=== PATIENT | female | born 1990 | race Caucasian/White ===

== ENCOUNTER → 2016-10-20 | Day surgery (SDC) | payer OTHER ==
[~2016-10-20] MED LIST: ACET325T11 PO; ACETAMINOPHEN 1000 MG/100 ML VIAL IV ONE; BACITRACIN IM FOR SOLN 50,000 UNIT VIAL ONE; BUPIVACAINE/EPINEPHRINE 0.25% 50 ML VIAL ONE; GENTAMICIN SULFATE 80 MG/2 ML VIAL ONE; LACTATED RINGER'S 1000 ML INJ 1,000 ML ONE; LIDOCAINE 1%/EPINEPHrine 1:100,000 SOLN 20 ML VIAL ONE; MIDAZOLAM HCL 2 MG/2 ML VIAL ONE; ONDANSETRON HCL 4 MG/2 ML VIAL IV PUSH ONE; PREN0.01 PO; PROPOFOL 200 MG/20 ML AMP IV ONE; SODIUM CHLORIDE 0.9% 20 ML VIAL ONE; ceFAZolin INJ 1,000 MG VIAL ONE
--- NOTE | 2016-10-20 12:33 | TN ---
cc: JUDD VÁSQUEZ M.D. DATE OF SURGERY 10/20/2016 PREOPERATIVE DIAGNOSIS Wishes of breast enhancement. POSTOPERATIVE DIAGNOSIS Wishes of breast enhancement. PROCEDURE Bilateral breast augmentation. SURGEON Judd Vásquez MD ANESTHESIA LMA general ESTIMATED BLOOD LOSS Minimal COMPLICATIONS None DRAINS None TECHNIQUE, PLACEMENT AND IMPLANT An inframammary, retroperitoneal cohesive texture gel DAPHNE Link, volume 450 cc, serial number of the right breast implant device [id number], implant data on the left breast implant [id number]. COMPLICATIONS None DRAINS None PROCEDURE She was properly consented, marked, properly anesthetized, skin was sterilized with Betadine solution and sterile draping applied. I proceeded to performed a breast block of a total of 60 cc of 1% lidocaine with epinephrine mixed with 0.25% Marcaine in a 2:1 ration. Through a 5-1/2 - 6 cm inframammary incision, Monisha's fascia was appropriately identified and spared creating a proper hammock sling for the lower pole. This was properly brought into the dissection and was carried on down into the muscle fibers of the pectoris major muscle. The fascia was properly dissected with a retroglandular plane exposing the pectoris major muscle fibers. The pocket was properly created utilizing electrocautery. Meticulous hemostasis was reassured and irrigation with triple antibiotic solution took place. From the beginning, the contra side was approached in exactly the same manner. For the beginning, the nipple-areolar complex was properly isolated with Tegaderm. At this point, utilizing no-touch technique, the patient's implants were introduced by also isolating the skin with Tegaderm. The implants were introduced. The patient was sat up, blunt touch ups were done to achieve best symmetry possible and achieving that, we performed a three layered closure with 2-0 Monocryl suture in the following layers, the breast parenchyma, Monisha's fascia dermis and subcu. Mastisol and Steri-Strips were applied, absorbent dressings and a snug brassiere thereafter. Overall, the patient the procedure well. She was awakened and extubated in the operating room, transferred back to the postanesthesia care unit in stable condition. There were no complications appreciated and the patient tolerated the procedure fairly well. MD PACHECO Hall/RODNEY /12:07 PM /12:24 PM
== END | disposition home or self-care (01) ==
LOC: ESDC 09:30
PROVIDERS: ATTEND Plastic Surgery
DX: Z41.1 Encounter for cosmetic surgery (principal)
CPT/HCPCS: 00402; 19325; C1789; J0131; J0690; J1580; J2250; J2405; J3010; J7120